=== PATIENT | female | born 1955 | race Caucasian/White ===

== ENCOUNTER → 2017-04-23 | Outpatient (CLI) | payer OTHER ==
[~2017-04-23] MED LIST: ADVAIR 250/5028 PUFF IN; ADVIL200 MG PO; AUGMENTIN 875 M1 TAB PO; AVELOX400 MG PO; BENTYL20 MG PO; BENZONATATE200 MG PO; BIAXIN500 MG PO; BUPROPION HCL150 M1 PO; CIPRO 500MG TA500 MG PO; CORTISPORIN OTI10 M1 OT; DELTASONE5 MG PO; DULERA1 AR1 IH; LEVOFLOXACIN 5500 M1 PO; PERCOCET 5/3251 EACH PO; PREDNISONE 20MG20 MG PO; PROVENTIL0.09 MG/A1 IH; ROBITUSSIN DM120 ML PO; TESSALON PERLE100 MG PO; WELLBUTRIN SR100 MG PO; ZYRTEC5 MG PO
--- NOTE | 2017-04-23 09:49 | RADIOLOGY REPORT PS360 ---
US RUQ-(ABD LTD)1ORGAN/QUAD/FU HISTORY: Right upper quadrant pain and cramping with bloating ABDOMINAL PAIN ORDERING PHYSICIAN: Alona Jacobs APRN PATIENT AGE: 61 years COMPARISON: None FINDINGS: PANCREAS:Unremarkable. No obvious mass or abnormal fluid collection. No ductal dilatation LIVER:No focal liver lesions demonstrated. Homogeneous echogenicity. No intrahepatic biliary ductal dilatation evident RIGHT KIDNEY:6 cm benign-appearing cyst lower pole right kidney. No hydronephrosis GALLBLADDER:There is a small amount sludge within the gallbladder. No shadowing stones evident. No gallbladder wall thickening, pericholecystic fluid, or biliary dilatation. IMPRESSION: 1. Small amount of gallbladder sludge. No shadowing stones evident 2. Right renal cyst
== END ==
LOC: RAD 08:42
DX: R10.11 Right upper quadrant pain (principal); R10.13 Epigastric pain

== ENCOUNTER → 2017-05-21 | Outpatient (CLI) | payer OTHER ==
[~2017-05-21] MED LIST changes: +HYDROCODONE/APA1 TA8 PO
--- NOTE | 2017-05-21 16:17 | RADIOLOGY REPORT PS360 ---
[facility] HEPATOBILIARY SCAN HISTORY: Right upper quadrant pain and cramping SLUDGE IN G.B. ORDERING PHYSICIAN: Alona Jacobs APRN PATIENT AGE: 62 years COMPARISON: Gallbladder ultrasound 04/23/2017 DOSE: 8.54 mCi technetium Choletec Fatty meal with ensure. No pain reported with fatty meal. FINDINGS: Homogeneous activity is present within the hepatic parenchyma. Activity is present in the gallbladder by 20 minutes. Activity is present in the small bowel by 60 minutes. The gallbladder ejection fraction is calculated to be 49 % The patient did not report pain or other symptoms during CCK infusion. IMPRESSION: Unremarkable hepatobiliary scan and gallbladder ejection fraction. No evidence of common or cystic duct obstruction with normal gallbladder ejection fraction
== END ==
LOC: RAD 10:21
DX: K82.8 Other specified diseases of gallbladder (principal)
CPT/HCPCS: A9537

== ENCOUNTER 2017-05-25 18:42 | Emergency (ER) | payer OTHER ==
[~2017-05-25] VITALS: Ht 165.1 cm; Wt 54.4 kg
[~2017-05-25 18:42] MED LIST changes: -HYDROCODONE/APA1 TA8 PO
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
--- OUTSIDE RECORDS SUMMARY | 2017-05-25 19:10 | External Medical Summary Rpt | CCD ---
Author Author [employer] Organization [employer] Address Unknown Phone Unavailable Purpose Continuity of Care Document - through 2016
--- OUTSIDE RECORDS SUMMARY | 2017-05-25 19:10 | External Medical Summary Rpt | CCD ---
Author Author , [place] Organization [place] Address Unknown Phone [email or web address] Immunization Name Date Rout CVX Reac Dose Comm Prov Is Faci e tion ent ider Refu lity Give sed n Zost 08-0 Subc 121 1 mL Hist JERI No RITE er 4-20 utan ori S AID0 17 eous al STEP 3938 Info HEN rmat ion - Sour ce Unsp ecif ied
--- OUTSIDE RECORDS SUMMARY | 2017-05-25 19:10 | External Medical Summary Rpt | CCD ---
Author Author , [place] Address Unknown Phone [email or web address] Purpose Continuity of Care Document - through 2016 Problems Code Diagnosis DOS Provider Status J20.9 ACUTE BRONCHITIS, UNSPECIFIED J40 BRONCHITIS, NOT SPECIFIED ACUTE OR CHRONIC J44.0 CHRONIC OBSTRUCTIVE PULMON DISEASE W ACUTE LOWER RESP INFCT J44.1 CHRONIC OBSTRUCTIVE PULMONARY DISEASE W (ACUTE) EXACERBATIO N
--- OUTSIDE RECORDS SUMMARY | 2017-05-25 19:10 | External Medical Summary Rpt | CCD ---
Author Author , [place] Address Unknown Phone [email or web address] Purpose Continuity of Care Document - through 2016 Problems Code Diagnosis DOS Provider Status J20.9 ACUTE BRONCHITIS, UNSPECIFIED J40 BRONCHITIS, NOT SPECIFIED ACUTE OR CHRONIC J44.0 CHRONIC OBSTRUCTIVE PULMON DISEASE W ACUTE LOWER RESP INFCT J44.1 CHRONIC OBSTRUCTIVE PULMONARY DISEASE W (ACUTE) EXACERBATIO N
--- OUTSIDE RECORDS SUMMARY | 2017-05-25 19:10 | External Medical Summary Rpt | CCD ---
Author Author , [place] Organization [place] Address Unknown Phone [email or web address] Immunization Name Date Rout CVX Reac Dose Comm Prov Is Faci e tion ent ider Refu lity Give sed n Zost 08-0 Subc 121 1 mL Hist JERI No RITE er 4-20 utan ori S AID0 17 eous al STEP 3938 Info HEN rmat ion - Sour ce Unsp ecif ied
[2017-05-25] MEDS ORDERED: HYDROCODONE/APA1 TA8 PO (19:32)
[2017-05-25 20:31] VITALS: BP 143/95
== END 2017-05-25 20:32 | disposition home or self-care (01) ==
LOC: ER 18:42
DX: S05.01XA Injury of conjunctiva and corneal abrasion without foreign body, right eye, initial encounter (principal); W22.8XXA Striking against or struck by other objects, initial encounter; Y92.89 Other specified places as the place of occurrence of the external cause